=== PATIENT | female | born 1960 | race Caucasian/White ===

== ENCOUNTER 2018-03-18 10:52 | Observation (INO) ==
--- NOTE | 2018-03-17 12:52 | MH ---
cc: Shayla Sam MD DATE OF ADMISSION: 03/18/2018 ADMITTING DIAGNOSIS: Osteoarthritic degeneration, right knee, now being admitted for right total knee arthroplasty. Admission history and physical is as follows: HISTORY OF PRESENT ILLNESS: This pleasant 57-year-old diabetic female is being admitted today for right total knee arthroplasty due to severe painful osteoarthritic degeneration, right knee. Although, past history. She has a history of insomnia and hypertension. CURRENT MEDICATIONS: Include: 1. Mobic, stop before surgery. 2. Zolpidem. 3. Estradiol. 4. Gabapentin. 5. Lisinopril. 6. Roxicet. 7. Lorazepam. PREVIOUS SURGERIES: Carpal tunnel release and foot surgery. REVIEW OF SYSTEMS: Noncontributory. FAMILY HISTORY: Noncontributory. SOCIAL HISTORY: She does not smoke or drink. ALLERGIES: NO KNOWN ALLERGIES. PHYSICAL EXAMINATION: GENERAL: A 57-year-old female, well-developed, well-nourished, and oriented x3 complaint of pain in right knee. VITAL SIGNS: Blood pressure 132/84, pulse 72 and regular, respirations 16, temperature 98.3, pulse oximetry 98% on room air. HEENT: Eyes PERRLA, EOMI. Ears, nose, mouth clear. NECK: Supple. LUNGS: Clear. HEART: Regular rate. ABDOMEN: Soft, positive bowel sounds, nontender. EXTREMITIES: Right knee to be tender with crepitance throughout range of motion. Neurovascularly intact to her toes. IMPRESSION: Severe painful osteoarthritic degeneration, right knee. PLAN: Admission for right total knee arthroplasty today. The patient was given a prescription for postoperative anticoagulation therapy and plans on going home after surgical stay in the hospital. JMD ASHOK Linares/renae/loreto , 12:16 PM , 12:24 PM
[2018-03-18] MEDS ORDERED: Ropivacaine 0.5% PF Inj 20 ML Vial ONE (11:07)
[2018-03-18] MEDS ORDERED: Chlorhexidine Gluconate 2% 1 Pack (2 Cloths) TOPICAL ONE (11:15)
[2018-03-18] MEDS ORDERED: Chlorhexidine 4% Topical 120 APPLIC/120 ML Bottle TOPICAL SCH (11:15)
[2018-03-18] MEDS ORDERED: Metoprolol Tartrate 25 MG Tablet PO ONE (11:15)
[2018-03-18] MEDS ORDERED: Sodium Chlor 0.9% Inj 500 ML IV.CONT ONE (11:15)
[2018-03-18] MEDS ORDERED: ceFAZolin 2 GM Premix Inj 2 GM/50 ML PIGGYBACK IV.SIG SCH (12:00)
[2018-03-18] MEDS ORDERED: Ketamine Inj 50 MG/5 ML Syringe IV.PUSH ONE (12:20)
[2018-03-18] MEDS ORDERED: fentaNYL Citrate Inj 100 MCG/2 ML Ampul ONE (12:21)
[2018-03-18] MEDS ORDERED: Famotidine PF Inj 20 MG/2 ML Vial ONE (12:21)
[2018-03-18] MEDS ORDERED: fentaNYL Citrate Inj 250 MCG/5 ML Ampul ONE (12:21)
[2018-03-18] MEDS ORDERED: Sodium Chlor 0.9% Inj 80 ML, Bupivacaine Liposo PF 1.3% Inj 20 ML, Bupivacaine PF 0.25%... P-ARTICULR SCH ×3 (12:30)
[2018-03-18] MEDS: SODIUM CHLOR 0.9% IV.SIG SCH ×2 (13:01→16:35)
[2018-03-18] MEDS: TRANEXAMIC ACID IV.SIG SCH ×2 (13:01→16:35)
[2018-03-18] MEDS ORDERED: Post-op Orders (for Pharmacy) OTHER STA (13:16)
[2018-03-18] MEDS ORDERED: Bisacodyl 10 MG Supp RECTAL PRN (13:16)
--- NOTE | 2018-03-18 13:27 | P.DCO ---
- Diagnosis (1) Status post total right knee replacement using cement Status: Acute - Physical Therapy Order: Evaluate and treat, Improve ambulation, Strength and gait training - Home Health Nursing Order: Medical education, Nursing assessment with vital signs - Case Management Consult Case Management Consult-Home Health: Yes (post op management at home) - Certification I have seen patient Debbie Rodriguez on 03/18/18. My clinical findings support the need for the requested home health care services because: High risk of falls I certify that my clinical findings support that this patient is homebound because: Post-op weakness, Unsteady gait/balance, Unsafe to leave home unassisted
[2018-03-18] MEDS ORDERED: Estradiol 0.1 MG/24 HR Patch T-DERMAL SCH (15:00)
[2018-03-18] MEDS ORDERED: Tranexamic Acid Inj 1,000 MG in Sodium Chlor 0.9% Inj 100 ML IV.SIG SCH (15:30)
[2018-03-18] MEDS ORDERED: HYDROmorphone PF Inj 0.5 MG/0.5 ML Syringe ONE (16:05)
--- NOTE | 2018-03-18 16:13 | MP ---
cc: Shayla Sam MD DATE OF OPERATION: 03/18/2018 DATE OF SURGERY: 03/18/2018 PREOPERATIVE DIAGNOSIS: Osteoarthritic degeneration, right knee. POSTOPERATIVE DIAGNOSIS: Osteoarthritic degeneration, right knee. PROCEDURE PERFORMED: Right total knee arthroplasty using consensus components, size 3 femur, 1 tibia and size 1 patella with a size 14 standard insert and 2 batches of antibiotic-impregnated cement. PROCEDURE: SURGEON: Shayla Sam MD. PRIZER HAND: Janae Shahid APRN. ANESTHESIA: General intubation and block. PROCEDURE: After successful induction of anesthesia, the patient is placed on the operating room table in the supine position. The knee is prepped and draped in the usual manner. A tourniquet is inflated at the upper thigh and set to 300 mmHg pressure after exsanguination of the lower extremity. A longitudinal incision is made extending from 3 inches proximal to the superior pole of the patella, across the patella in longitudinal fashion, and down past the insertion of the tibial tubercle into the proximal tibia. The incision is carried down through subcutaneous tissue along the medial aspect of the patella and retinaculum, down through the capsule to expose the knee joint. The patella and patellar tendon are freed up enough to allow the patella to be inverted and retracted off the lateral side of the knee joint. The knee joint is left exposed. Small osteophytes are removed. All soft tissue is removed to allow proper position of the femoral and tibial cutting jig guide. The first femoral jig is then inserted along the distal end of the femur after first measuring to decide whether this is a small, medium, or large component. The notch is then drilled and the tibial cutting guide inserted into the femoral cutting guide, along with the ankle brace to allow for proper measurement of the tibial cutting surface that needed to be resected. Pins are inserted into the tibial cutting jig and femoral cutting jig to hold them in place. An oscillating saw is then used to resect the surface of the tibia. The surface of the tibia is then completely removed using sharp and blunt dissection. The anterior and posterior cuts of the femur are then made as well using an oscillating saw through the cutting guide. All guides are then removed and the varus/valgus angulation cutting guide applied to the femur for proper measurement of the proper amount of valgus. The anterior cutting guide for the femur is then inserted at the anterior femoral cuts made. Next, the first block trial is inserted into the femur to allow for proper condyle drill holes to be made which are then made followed by removal of the bone between the condyles using an oscillating saw as well as the bone removed at the most posterior surface of the condyle. After this, this guide is removed and the chamfer cuts made using the chamfer cutting guide from both anterior and posterior. Next, the femoral trial is then inserted, the tibial surface reflected anterior to expose the tibial surface and a tibial stem guide is inserted after first measuring for a standard, standard plus, large, or large plus surface to be used. After the stem is impacted the trial tibial surface is applied followed by the trial meniscal components. After full range of motion is found with the appropriate length meniscal components varying the patella is prepared by resecting the posterior aspect of the patella using an oscillating saw, inserting a trial. The trial is then removed and the cruciate cutting guide applied using the bur to cut the cruciate cuts. After cruciate cuts are made all trials are removed. The wound is irrigated copiously with antibiotic solution and Water Pik and the actual components inserted into place using the aforementioned components. After the cement has hardened and the components are found to have full range of motion with no instability, the tourniquet is deflated, total tourniquet time being 50 minutes at 300 mmHg pressure. The wound again is irrigated copiously with antibiotic solution, meticulous hemostasis achieved. Two Autovac tubes inserted, followed by closure of the deep fascia with both running and interrupted #1 Vicryl suture, subcutaneous tissue approximated using interrupted 2-0 Vicryl sutures, and skin approximated with natasha. Wet and dry dressing is applied to the wound followed by Xeroform gauze, sterile dressing and knee immobilizer. The patient tolerated the procedure well and left the Operating Room in satisfactory condition. ESTIMATED BLOOD LOSS: 100 mL. COUNTS: Sponge and suture counts were correct. COMPONENTS: The components used were the aforementioned ones. Tourniquet is deflated, total tourniquet time being 50 minutes at 300 mmHg pressure. Meticulous hemostasis achieved. The wound was irrigated copiously with antibiotic solution and water pick and a mixture of 80 mL normal saline 20 of Exparel and 20.25% Marcaine plain was injected around the knee joint for extra pain control. The deep fascia approximated with a running #2 Quill. Subcutaneous tissue approximated using running 2-0 and 3-0 Quill and Prineo dressing and knee immobilizer. No drain utilized. The patient tolerated the procedure well and left the operating room in satisfactory condition. Janae Shahid APRN, was present during the entire procedure to include patient positioning as well as the procedure itself. The medical necessity of a nurse practitioner research lab assistant was indicated in this case due to the surgical complexity of the case. The surgical services director was working the back table while my surgical technology instructor BLANK was directly assisting me. J. MD ASHOK Casper/renae/loreto , 03:31 PM , 03:38 PM MTDD
[2018-03-18] MEDS ORDERED: *morphine SULFATE 8 MG/ML PERIprocedure ONLY ONE (16:14)
[2018-03-18] MEDS ORDERED: *morphine SULFATE 4 MG/ML PERIprocedure ONLY ONE (16:21)
--- NOTE | 2018-03-18 16:41 | XR ---
EXAM DATE: 03/18/2018 4:38 PM EST AGE/SEX: 57 years / Female INDICATIONS: Post op. CLINICAL DATA: This is the patient's initial encounter. Patient reports that signs and symptoms have been present for 1 day and indicates a pain score of Nonresponsive. MEDICAL/SURGICAL HISTORY: Non-responsive. . Right knee replacement. COMPARISON: POI, XR KNEE COMPLETE, RIGHT, 02/03/2018. . FINDINGS: There is a prosthesis in place. There is good alignment with the bony structures. There are postsurgi juan changes present. The bony structures are grossly intact. CONCLUSION: Good position and alignment on this postoperative study. Electronically signed by: Juan J Farah MD Board Certified Radiologist 03/18/2018 4:40 PM EST
[2018-03-18] MEDS: ceFAZolin Inj 1 GM in Sodium Chlor 0.9% Inj 100 ML IV.SIG SCH ×2 (18:03→23:51)
[2018-03-18] MEDS: Gabapentin 300 MG Capsule PO SCH (18:03)
--- NOTE | 2018-03-18 18:28 | P.BOP ---
- Preoperative Diagnosis (1) Osteoarthritis of right knee - Postoperative Diagnosis (1) Status post total right knee replacement using cement Date of procedure: 03/18/18 Procedure: Right Total Knee Arthroplasty Implants: see implant record Anesthesia: GETA Surgeon: Jnony Sam MD Psychiatry Teacher: Janae Shahid Estimated blood loss (mL): 100 Tourniquet time (min): 50 (300 mmHg) Urine output (mL): 0 (no isbell) Pathology: none sent Condition: stable Disposition: PACU
[2018-03-18] MEDS: Multivitamin/Minerals Therapeutic Tablet PO SCH (20:59)
[2018-03-18] MEDS: Senna/Docusate Sodium 8.6/50 MG Tablet PO SCH (20:59)
[2018-03-18] MEDS: traZODone 50 MG Tablet PO SCH (20:59)
[2018-03-18] MEDS: LORazepam 1 MG Tablet PO PRN (22:43)
[2018-03-19 04:17] LABS: Hemoglobin 10.7 gm/dL (11.6-15.3)
[2018-03-19] MEDS: ceFAZolin Inj 1 GM in Sodium Chlor 0.9% Inj 100 ML IV.SIG SCH (05:54)
[2018-03-19] MEDS: LORazepam 1 MG Tablet PO PRN ×2 (08:28→18:14)
[2018-03-19] MEDS: Gabapentin 300 MG Capsule PO SCH ×3 (08:28→18:11)
[2018-03-19] MEDS: Senna/Docusate Sodium 8.6/50 MG Tablet PO SCH ×2 (08:29→20:24)
[2018-03-19] MEDS: Multivitamin/Minerals Therapeutic Tablet PO SCH ×2 (08:30→20:24)
--- NOTE | 2018-03-19 15:42 | P.PNOP ---
Subjective Interval history: Patient having some discomfort in the knee but also complaining of a headache. Physical Exam Vital signs: Vital Signs 03/18/18 16:00 03/18/18 16:15 03/18/18 16:30 Temperature 97.7 F Pulse Rate 90 88 84 Respiratory Rate 17 30 H 26 H Blood Pressure 158/88 H 165/96 H 169/71 H Pulse Oximetry 97 100 100 03/18/18 16:45 03/18/18 17:00 03/18/18 17:05 Temperature 99.0 F Pulse Rate 86 83 Respiratory Rate 22 18 17 Blood Pressure 154/66 H 160/72 H Pulse Oximetry 98 96 03/18/18 17:15 03/18/18 18:03 03/18/18 18:10 Temperature 97.3 F L Pulse Rate 88 87 Respiratory Rate 20 16 16 Blood Pressure 122/69 129/61 Pulse Oximetry 96 98 03/18/18 18:30 03/18/18 19:00 03/18/18 22:40 Temperature 97.4 F L Pulse Rate 83 Respiratory Rate 16 18 18 Blood Pressure 128/59 L Pulse Oximetry 96 03/19/18 00:00 03/19/18 02:56 03/19/18 03:00 Temperature 97.9 F 97.7 F Pulse Rate 87 87 Respiratory Rate 18 18 18 Blood Pressure 114/71 104/55 L Pulse Oximetry 96 97 03/19/18 08:00 03/19/18 11:41 Temperature 99.2 F 99.9 F H Pulse Rate 84 82 Respiratory Rate 16 16 Blood Pressure 104/55 L 110/60 Pulse Oximetry 93 L 94 L Intake & Output 03/18/18 03/19/18 03/19/18 18:59 06:59 18:59 Intake Total 819.21 / 819.21 1660 / 1660 Output Total 250 / 250 Balance 569.21 / 569.21 1660 / 1660 Weight 92.1 kg 92.1 kg Intake: IV 269.21 / 269.21 1300 / 1300 LR 1000 mL Inj 1,000 ML @ 80 1000 / 1000 mls/hr IV.CONT .[id number] ISABELL Rx# :[id number] Cyklokapron Inj 1,000 MG In NS 219.21 / 219.21 Inj 100 ML @ 200 mls/hr IV.SIG ONCE ISABELL Rx#:[id number] Ancef 2 GM Premix Inj 2 gm In 50 / 50 50 ml @ 100 mls/hr IV.SIG [employer] ISABELL Rx#:[id number] Ancef Inj 1 GM In NS Inj 100 ML 300 / 300 @ 100 mls/hr IV.SIG Q6H ISABELL Rx #:[id number] Oral 360 / 360 Anesthesia Amount 550 / 550 Output: Urine 150 / 150 Estimated Blood Loss 100 / 100 Other: # Voids 1 7 Date of Last Bowel Movement 03/18/18 # Bowel Movements 0 Weight On Admission 92.1 kg - Constitutional no acute distress Results - Labs CBC & Chem 7: 03/19/18 03:38 Laboratory Results - last 24 hr 03/19/18 03:38 Hgb 10.7 L Hct 33.0 L - Imaging Impressions Knee X-Ray 03/18/18 13:14 CONCLUSION: Good position and alignment on this postoperative study. Assessment and Plan - Problem List (1) Status post total right knee replacement using cement Code(s): Z96.651 - Presence of right artificial knee joint Status: Acute - Attending Attestation Attending Attestation: Dressing is dry and intact. No calf tenderness. She is neurovascular intact to her toes. Plan is for patient to continue with physical therapy today and Tylenol for headache. Plan on going home with home health care and physical therapy tomorrow.
[2018-03-19] MEDS: traZODone 50 MG Tablet PO SCH (20:24)
[2018-03-20] MEDS: Morphine Inj 4 MG/ML Vial IV.PUSH PRN ×3 (03:10→12:38)
[2018-03-20] MEDS: LORazepam 1 MG Tablet PO PRN (05:35)
[2018-03-20 06:05] LABS: Hematocrit 31.6 % (35.0-46.0); Hemoglobin 10.6 gm/dL (11.6-15.3)
[2018-03-20] MEDS: Multivitamin/Minerals Therapeutic Tablet PO SCH (08:49)
[2018-03-20] MEDS: Gabapentin 300 MG Capsule PO SCH ×2 (08:49→12:38)
[2018-03-20] MEDS: Senna/Docusate Sodium 8.6/50 MG Tablet PO SCH (08:49)
[2018-03-20 10:09] VITALS: RESP 16; O2SAT 96
--- NOTE | 2018-03-20 12:45 | P.PNOP ---
Subjective Interval history: Patient much more comfortable today. Physical Exam Vital signs: Vital Signs 03/19/18 16:00 03/19/18 19:35 03/20/18 00:00 Temperature 99.5 F 100.1 F H 98.7 F Pulse Rate 90 92 H 90 Respiratory Rate 16 18 18 Blood Pressure 107/57 L 138/66 96/67 L Pulse Oximetry 94 L 93 L 93 L 03/20/18 03:12 03/20/18 08:00 Temperature 99.3 F 98.5 F Pulse Rate 76 82 Respiratory Rate 18 16 Blood Pressure 126/74 119/68 Pulse Oximetry 94 L 96 Intake & Output 03/19/18 03/20/18 03/20/18 18:59 06:59 18:59 Intake Total 1080 / 1080 1840 / 1840 Balance 1080 / 1080 1840 / 1840 Weight 98.6 kg Intake: IV 1000 / 1000 Oral 1080 / 1080 840 / 840 Other: # Voids 6 5 Date of Last Bowel Movement 03/18/18 03/18/18 03/18/18 # Bowel Movements 0 0 - Constitutional no acute distress Results - Labs CBC & Chem 7: 03/20/18 05:17 Laboratory Results - last 24 hr 03/20/18 05:17 Hgb 10.6 L Hct 31.6 L Assessment and Plan - Problem List (1) Status post total right knee replacement using cement Code(s): Z96.651 - Presence of right artificial knee joint Status: Acute - Attending Attestation Attending Attestation: Wound is clean and dry. Patient able to ambulate with a walker. She is neurovascular intact to her toes with no calf tenderness. Plan is for patient to be discharged home today with home health care and physical therapy. She has an appointment for follow-up in the office.
--- NOTE | 2018-03-20 13:14 | MD ---
cc: Shayla Sam MD DATE OF DISCHARGE: DATE OF ADMISSION FOR SURGERY: 03/18/2018 DATE OF DISCHARGE: 03/20/2018 ADMITTING DIAGNOSIS: Osteoarthritic degeneration of right knee. DISCHARGE SUMMARY: This is a pleasant 57-year-old female who was admitted on 03/18/2018 with osteoarthritic degeneration, right knee, at which time she underwent a total knee arthroplasty. She continued to improve, remaining afebrile. Vital signs stable. Neurovascularly intact. Continued out of bed with physical therapy, tolerating food and fluid well and p.o. pain medication. She was discharged in good condition on the second postoperative day, with instructions for home health care, physical therapy and followup in the office. J. Jamison Sam MD JRR/sb , 12:48 PM , 12:52 PM
[2018-03-20 13:59] VITALS: BP 130/59; PULSE 84; TEMP 98.6
== END 2018-03-20 15:34 | disposition home health service (06) ==
LOC: HSDC 10:52 → HSDI 10:52 → EDSTATUS 14:00 → N06 17:39
PROVIDERS: ADMIT Surgery; ATTEND Surgery
CPT/HCPCS: 73560; 85014; 85018; 86850; 86900; 86901; 94150; 96365; 96366; 96375; 96376; 97110; 97150; 97162; 97530; C1776; C9290; G0378; G8987; G8988; J0131; J0690; J1170; J1580; J2060; J2250; J2270; J2795; J3010; J7120; L1830